=== PATIENT | male | born 1965 | race Two or more races ===

== ENCOUNTER 2018-12-01 20:00 | Inpatient (IN) | payer OTHER | END 2018-12-06 13:00 | disposition home or self-care (01) | LOC: ER 20:00 → OVERFLOW 12-02 05:50 → CENTRAL 12-02 06:03 | DX: L03.116 Cellulitis of left lower limb (principal); K92.2 Gastrointestinal hemorrhage, unspecified; E11.65 Type 2 diabetes mellitus with hyperglycemia; I10 Essential (primary) hypertension ==